=== PATIENT | female | born 2000 | race Caucasian/White ===

== ENCOUNTER 2023-01-01 12:25 | Inpatient (IN) | payer MEDICAID, SELFPAY ==
[2023-01-01 12:27] VITALS: BP 102/72; PULSE 64; RESP 20; TEMP 35.9; O2SAT 91; BMI 22.6
--- NOTE | 2023-01-01 12:27 | ED.C_ITS ---
HPI - Psych General: Chief Complaint: Psychiatric Symptoms Stated Complaint: PSYCH EVAL Time Seen by Provider: 01/01/23 12:27 History of Present Illness: Ms Espinoza is a 22-year-old lady with history of psychiatric disorder presenting to the emergency department for psychiatric evaluation. She reports over the past few days having more difficulty as she stopped taking her medical marijuana and has been more anxious and more depressed. Starting last night her anxiety has become unmanageable and progressively worsening. She was seen by crisis stabilization and given Vistaril without significant improvement. She reports the anxiety is so bad that she feels suicidal. Intensity symptoms is severe. No other specific changes in health, exacerbating, or alleviating factors identified. Onset (ago): day(s) Duration: getting worse History of same: Yes Relieving factors: none Exacerbating factors: none Context: other Associated psychiatric symptoms: depression, suicidal ideation and racing thoughts Review of Systems General: Reports: 10 or more systems reviewed and unremarkable except in HPI and below PFSH ED PFSH: Medical History (Updated 01/06/23 @ 00:01 by RUTH ANN Shankar) MDD (major depressive disorder) Psychiatric care PTSD (post-traumatic stress disorder) Physical Exam Const: COMMON NORMALS: alert GENERAL APPEARANCE: cooperative and well developed HENMT: COMMON NORMALS: normocephalic and atraumatic HEAD & SCALP: normocephalic and atraumatic Eye: COMMON NORMALS: conjunctivae normal CONJUNCTIVA: Yes conjunctivae normal SCLERA: sclerae normal Neck/C-Spine: COMMON NORMALS: supple GENERAL: Yes trachea midline Resp: COMMON NORMALS: clear to auscultation bilaterally EFFORT & INSPECTION: Yes able to speak in complete sentences AUSCULTATION: clear to auscultation bilaterally Cardio: COMMON NORMALS: regular rate and regular rhythm RATE: regular rate RHYTHM: regular rhythm GI: COMMON NORMALS: Soft to palpation PALPATION: Yes Soft to palpation and No Tenderness to palpation present (GI) PERCUSSION: normal to percussion Extremity: GENERAL: Yes normal exam except as noted and No edema Neuro: COMMON NORMALS: moves all extremities SENSORIUM/ORIENTATION: Yes alert and No Orientation impaired Psych: ACTIVITY/MOTOR BEHAVIOR: Yes restless MOOD & AFFECT: Yes anxious Course Vital Signs: Vital signs: Vital Signs Temperature 97.9 F 01/05/23 12:51 Pulse Rate 78 01/05/23 12:51 Respiratory Rate 17 01/05/23 12:51 Blood Pressure 94/64 01/05/23 12:51 Pulse Oximetry 96 01/05/23 12:51 Oxygen Delivery Me thod 01/05/23 06:00 MDM - Psych Medical Decision Making 22-year-old lady presenting for psychiatric evaluation. Exam as above. Labs with no significant hematologic or metabolic abnormality to explain symptoms. Toxic ingestions are negative. UDS positive for benzodiazepines and THC. Given clinical history and exam no indication for imaging at this time. Given severity and worsening of symptoms patient is appropriate for inpatient management. Based on ED evaluation at this point there is no obvious condition that would preclude the patient from inpatient management psychiatric concerns/symptoms. The results of ED evaluation were discussed with the patient including plan for admission due to requirement for level of care not available if discharged to prevent significant worsening/deterioration. Patient agreeable with plan. Discussed with psychiatry service who was agreeable to admit patient. Medical Records I reviewed the patient's medical records. Lab Data I reviewed the patient's lab results. 01/01/23 13:15 01/01/23 13:15 Laboratory Results WBC 4.9 10^3/uL (4.0-10.0) 01/01/23 13:15 RBC 4.42 10^6/uL (4.1-5.3) 01/01/23 13:15 Hgb 13.4 g/dL (11.5-15.3) 01/01/23 13:15 Hct 41.1 % (37.0-47.0) 01/01/23 13:15 MCV 93.0 fl (81-99) 01/01/23 13:15 MCH 30.3 pg (28.0-34.0) 01/01/23 13:15 MCHC 32.6 g/dL (30.0-36.0) 01/01/23 13:15 RDW 12.2 % (12.1-15.1) 01/01/23 13:15 Plt Count 209 10^3/cmm (130-400) 01/01/23 13:15 MPV 11.1 fL (7.4-10.4) H 01/01/23 13:15 Neut % (Auto) 78.4 % 01/01/23 13:15 Lymph % (Auto) 15.7 % 01/01/23 13:15 Millard % (Auto) 4.9 % 01/01/23 13:15 Eos % (Auto) 0.2 % 01/01/23 13:15 Baso % (Auto) 0.6 % 01/01/23 13:15 Neut # (Auto) 3.83 10^3/uL (1.8-7.7) 01/01/23 13:15 Lymph # (Auto) 0.8 10^3/uL (0.8-4.8) 01/01/23 13:15 Millard # (Auto) 0.2 10^3/uL (0.2-0.9) 01/01/23 13:15 Eos # (Auto) 0.0 10^3/uL (0.0-0.8) 01/01/23 13:15 Baso # (Auto) 0.0 10^3/uL (0.0-0.1) 01/01/23 13:15 Nucleated RBC % (auto) 0 % 01/01/23 13:15 Nucleated RBCs # 0.0 /100WBC 01/01/23 13:15 Sodium 138 mmol/L (136-145) 01/01/23 13:15 Potassium 4.2 mmol/L (3.5-5.1) 01/01/23 13:15 Chloride 99 mmol/L (98-107) 01/01/23 13:15 Carbon Dioxide 25 mmol/L (22-29) 01/01/23 13:15 Anion Gap 18.2 (5-19) 01/01/23 13:15 BUN 9 mg/dL (6-20) 01/01/23 13:15 Creatinine 0.6 mg/dL (0.5-0.9) 01/01/23 13:15 GFR Calculation 122.8 mL/min (90-130) 01/01/23 13:15 Glucose 99 mg/dL (65-115) 01/01/23 13:15 Calculated Osmolality 285 mOsm/kg (285-295) 01/01/23 13:15 Calcium 9.8 mg/dL (8.5-10.5) 01/01/23 13:15 Total Bilirubin 0.8 mg/dL (0.15-1.2) 01/01/23 13:15 AST 25 U/L (0-32) 01/01/23 13:15 ALT 11 U/L (0-33) 01/01/23 13:15 Alkaline Phosphatase 57 U/L (35-105) 01/01/23 13:15 Total Protein 7.4 g/dL (6.6-8.7) 01/01/23 13:15 Albumin 5.0 g/dL (3.5-5.2) 01/01/23 13:15 Globulin 2.4 g/dL (1.3-4.6) 01/01/23 13:15 TSH 0.77 uIU/mL (0.27-4.20) 01/01/23 13:15 HCG, Qual Negative (Negative) 01/01/23 13:37 Salicylates < 0.3 mg/dL (3-10) L 01/01/23 13:15 Urine Opiates Screen Negative ng/mL (Negative) 01/01/23 13:37 Acetaminophen < 5.0 ug/mL (10-30) L 01/01/23 13:15 Ur Barbiturates Screen Negative ng/mL (Negative) 01/01/23 13:37 Ur Phencyclidine Scrn Negative ng/mL (Negative) 01/01/23 13:37 Ur Amphetamines Screen Negative ng/mL (Negative) 01/01/23 13:37 U Benzodiazepines Scrn Positive ng/mL (Negative) H 01/01/23 13:37 Urine Cocaine Screen Negative ng/mL (Negative) 01/01/23 13:37 U Marijuana (THC) Screen Positive ng/mL (Negative) H 01/01/23 13:37 Ethyl Alcohol < 10 mg/dL (0-10) 01/01/23 13:15 Discharge Plan Discharge Patient Disposition: Admitted As Inpatient Admit Provider: Eddy Street Clinical Impression: PTSD (post-traumatic stress disorder), Suicidal ideation, Acute anxiety Condition: Stable Discharge Diet: Regular Discharge Activity: Resume usual activity Coding Level of Care Code ED [employer] for Yaakov Mccrary
--- NOTE | 2023-01-01 13:02 | PC.PHAR ---
pt states she doesnt take rx or otc meds-pt states she was at the [facility] today and they gave her a one time dose of vistaril 50mg
[2023-01-01 13:20] LABS: Basophils % 0.6 %; Eosinophils % 0.2 %; Hematocrit 41.1 % (37.0-47.0); Hemoglobin 13.4 g/dL (11.5-15.3); Lymphocytes # 0.8 10^3/uL (0.8-4.8); Lymphocytes % 15.7 %; Mean Corpuscular HGB Conc 32.6 g/dL (30.0-36.0); Mean Corpuscular Hemoglobin 30.3 pg (28.0-34.0); Mean Platelet Volume 11.1 fL (7.4-10.4); Monocytes # 0.2 10^3/uL (0.2-0.9); Monocytes % 4.9 %; Neutrophils # 3.83 10^3/uL (1.8-7.7); Neutrophils % 78.4 %; Nucleated Red Blood Cells % 0 %; Platelet Count 209 10^3/cmm (130-400); Red Blood Count 4.42 10^6/uL (4.1-5.3); Red Cell Distribution Width 12.2 % (12.1-15.1); White Blood Count 4.9 10^3/uL (4.0-10.0)
[2023-01-01] MEDS: LORazepam 1 mg Tablet PO (13:35)
[2023-01-01 13:48] LABS: HCG Qualitative Urine. Negative (Negative)
[2023-01-01 13:57] LABS: Alanine Aminotransferase 11 U/L (0-33); Alkaline Phosphatase 57 U/L (35-105); Anion Gap 18.2 (5-19); Aspartate Amino Transferase 25 U/L (0-32); Blood Urea Nitrogen 9 mg/dL (6-20); Calcium 9.8 mg/dL (8.5-10.5); Carbon Dioxide 25 mmol/L (22-29); Chloride 99 mmol/L (98-107); Globulin 2.4 g/dL (1.3-4.6); Glomerular Filtration Rate 122.8 mL/min (90-130); Glucose 99 mg/dL (65-115); Osmolality Calculated 285 mOsm/kg (285-295); Potassium 4.2 mmol/L (3.5-5.1); Sodium 138 mmol/L (136-145); Thyroid Stimulating Hormone 0.77 uIU/mL (0.27-4.20); Total Bilirubin 0.8 mg/dL (0.15-1.2); Total Protein 7.4 g/dL (6.6-8.7)
[2023-01-01 14:00] LABS: Acetaminophen < 5.0 ug/mL (10-30); Alcohol Level < 10 mg/dL (0-10); Salicylate < 0.3 mg/dL (3-10)
[2023-01-01 14:56] VITALS: BP 102/72; PULSE 64; RESP 20; TEMP 35.9; O2SAT 91
[2023-01-01 15:33] VITALS: BP 108/66; PULSE 86; RESP 16; TEMP 36.9; O2SAT 98
[2023-01-01 19:05] LABS: Amphetamines Screen Urine Negative (Negative); Barbiturates Screen Urine Negative (Negative); Benzodiazepines Screen Urine Positive (Negative); Cocaine Screen Urine Negative (Negative); Opiate Screen Urine Negative (Negative); PCP Screen Urine Negative (Negative); THC Screen Urine Positive (Negative)
[2023-01-01 21:44] VITALS: BP 95/60; PULSE 61; RESP 16; TEMP 36.9; O2SAT 97
[2023-01-01] MEDS: trazodone 50 mg Tablet PO (22:41)
[2023-01-02 06:00] VITALS: BP 96/59; PULSE 78; RESP 16; TEMP 36.8; O2SAT 98
[2023-01-02] MEDS: hyDROXYzine 25 mg Capsule 50 MG PO ×4 (08:13→21:11)
--- NOTE | 2023-01-02 08:17 | PC.NURSE ---
Addendum entered by Anna Marie Olivas LPN 01/02/23 09:47: PRN MED EFFECTIVE PT VOICED RELIEF Original Note: PRN VISTARIL 50 MG GIVEN PO PER PT C/O STATED ANXIETY, SAYS SHE HAS PTSD
--- NOTE | 2023-01-02 13:02 | PC.NURSE ---
PRN VISTARIL 50 MG GIVEN PO PER PT C/O STATED ANXIETY
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
[2023-01-02 14:00] VITALS: BP 96/55; PULSE 98; RESP 17; TEMP 37.3; O2SAT 97
--- NOTE | 2023-01-02 17:50 | PC.NURSE ---
PRN VISTARIL 50 MG GIVEN PO PER PT C/O FURTHER ANXIETY
[2023-01-02 20:12] VITALS: BP 108/71; PULSE 106; RESP 18; TEMP 36.7; O2SAT 98
[2023-01-02] MEDS: trazodone 50 mg Tablet PO (23:20)
[2023-01-03 06:00] VITALS: BP 93/57; PULSE 60; RESP 14; TEMP 36.6; O2SAT 98
[2023-01-03] MEDS: fluoxetine 10 mg Capsule PO (08:09)
--- NOTE | 2023-01-03 08:59 | PC.NURSE ---
reported to nurse she had a bowel movement this morning prior to taking her shower
[2023-01-03 14:00] VITALS: BP 97/57; PULSE 100; RESP 18; TEMP 36.6; O2SAT 96
--- NOTE | 2023-01-03 15:24 | P.NPUPN_ITS ---
Subjective NPU Subjective: Patient is a 22-year-old white female with PTSD and depression admitted with suicidal ideation and worsening depression with recent exacerbation of PTSD symptoms as she had been triggered by seasonal reminders. She reported continued depressed mood but stated that she was already feeling better here. She had felt more optimistic about her treatment. She was given further options of what to consider to treat depression including medications and this included the use of Spravato and also other modalities of treatment including transcranial magnetic stimulation. Patient appeared to tolerate the Prozac without any worsening anxiety. She reported decreased energy. She had reported significant appetite loss and some increased weight loss. She had not endorsed any body image distortion. She had expressed having diminished appetite for several months. She had reported that in times of being more stressed she had a tendency to not eat as well. She had been compliant and had attended groups and had requested further information regarding depression. Mental Status Exam MSE Comments: She is a thin white female who appeared her stated age. She was pleasant and cooperative on interview. There was evidence of mild psychomotor retardation. Her gait was within normal limits. Her hygiene was fair. There was no evidence of any abnormal involuntary motor movements tics or tremors a ppreciated. Her speech was normal in regards to rate rhythm and prosody. Her mood was described as depressed. Her affect was mood congruent and restricted in range. Her attention span appeared fair. Her insight was limited her judgment was fair. Her impulse control appeared to be improving. There was no evidence of any delusional thinking. She did not appear to be responding internal stimuli. Her recent and remote memory appeared adequate. Vitals/I&O/Wt Last Vital Signs Temp 98 F 01/03/23 14:00 Pulse 100 01/03/23 14:00 Resp 18 01/03/23 14:00 BP 97/57 01/03/23 14:00 Pulse Ox 96 01/03/23 14:00 O2 Del Method 01/03/23 14:00 Data NPU 01/01/23 13:15 01/01/23 13:15 A&P Assessment and plan (1) MDD (major depressive disorder): (2) PTSD (post-traumatic stress disorder): (3) Suicidal ideation: (4) Acute anxiety: Plan This 22-year-old white female admitted voluntarily with a history of major depressive disorder and PTSD currently receiving psychotherapy with continued stressors described at home currently endorsing suicidal ideation and fear of being alone. 1.? Increase Prozac to 20mg in am, information provided regarding treatment for depression and PTSD including different forms of therapy. 2.? TO- 15 minute checks for safety. 3.? Engage patient in individual, group and milieu therapy. 4.? Encourage sobriety treatment after discharge to the hospital care to which she is willing to commit.? Involuntary Hold Information 96 Hour Hold: 96 Hour Involuntary Admission: No Attestations NPU Medical Necessity Statement*: Inpatient hospitalization is medically necessary and is the clinically appropriate decision at this time with likely length of stay of 3 to 5 days while adjusting medications. Coding Level of Care Code Acute Code for [facility] Fwd Diagnoses MDD (major depressive disorder) F32.9 PTSD (post-traumatic stress disorder) F43.10 Suicidal ideation R45.851 Acute anxiety F41.9
[2023-01-03] MEDS: trazodone 50 mg Tablet PO (20:30)
--- NOTE | 2023-01-03 20:35 | PC.NURSE ---
PRN TRAZODONE GIVEN PER PT REQUEST FOR SLEEP.
[2023-01-03 21:08] VITALS: BP 110/76; PULSE 85; RESP 18; TEMP 36.7; O2SAT 97
[2023-01-04 06:00] VITALS: BP 105/62; PULSE 58; RESP 17; TEMP 36.6; O2SAT 97
[2023-01-04] MEDS: hyDROXYzine 25 mg Capsule 50 MG PO (07:41)
[2023-01-04] MEDS: fluoxetine 10 mg Capsule PO (08:22)
[2023-01-04 14:00] VITALS: BP 108/69; PULSE 74; RESP 16; TEMP 36.9; O2SAT 96
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
[2023-01-04] MEDS: trazodone 50 mg Tablet PO (19:58)
[2023-01-04 22:00] VITALS: BP 118/76; PULSE 81; RESP 17; TEMP 36.7; O2SAT 96
[2023-01-05] MEDS: trazodone 50 mg Tablet PO (00:05)
[2023-01-05] MEDS: hyDROXYzine 25 mg Capsule 50 MG PO (01:23)
[2023-01-05 06:00] VITALS: BP 94/64; PULSE 78; RESP 17; TEMP 36.6; O2SAT 96
[2023-01-05] MEDS: fluoxetine 10 mg Capsule PO (08:23)
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
[2023-01-05 12:51] VITALS: BP 94/64; PULSE 78; RESP 17; TEMP 36.6; O2SAT 96
--- NOTE | 2023-01-05 13:38 | PC.NURSE ---
Discharge information reviewed with patient including appointments and medications at 1312. Pt verbalized her understanding. Pt stated she felt ready to leave; denied SI/HI/AVH. Left ambulatory, with belongings, accompanied by . Pt denied complaints.
== END 2023-01-05 13:38 | disposition home or self-care (01) | DRG 881 ==
LOC: ER 14:09 → NP 01-02 06:40
PROVIDERS: Admitting Provider Psychiatry & Neurology Psychiatry; Emergency Provider Emergency Medicine; PCP Family Medicine; Visit Provider Psychiatry & Neurology Psychiatry
DX: F32.9 Major depressive disorder, single episode, unspecified (principal); R45.851 Suicidal ideations; F43.10 Post-traumatic stress disorder, unspecified; F41.9 Anxiety disorder, unspecified; Z63.4 Disappearance and death of family member; Z62.811 Personal history of psychological abuse in childhood
CPT/HCPCS: 80053; 80306; 80307; 81025; 84443; 85025; 97150; 97165; 99238; 99285

== ENCOUNTER → 2023-09-25 08:37 | Day surgery (SDC) | payer MEDICAID, SELFPAY ==
--- NOTE | 2023-09-25 09:31 | ANES.PREANE2 ---
Pre-Anesthetic Assessment Height/Weight: Height 1.66 m epidural Familial anesthetic complications: None Social No alcohol and No tobacco Exam alert, oriented x 3, clear to auscultation bilaterally and regular rate & rhythm Airway Dentition: chipped (front top) Anesthetic Plan ASA status: 2 Anesthesia: Regional (specify below) Risk of > 500 ml blood loss (7ml/kg in children): Yes, adequate IV access and fluids planned Medications/Allergies Home Medications Medication Instructions Recorded Confirmed Last Taken Type hydroxyzine pamoate 25 mg capsule 50 mg PO Q4H PRN Anxiety 30 days 01/05/23 07/24/23 Unknown Rx #120 caps cetirizine 10 mg capsule (All Day 10 mg PO DAILY PRN 04/24/23 07/24/23 Unknown History Allergy (cetirizine)) docosahexaenoic acid 200 mg mg PO DAILY 04/24/23 07/24/23 Unknown History capsule ( DHA) doxylamine succinate 25 mg tablet 12.5 mg PO .Q8Hrs PRN 04/24/23 07/24/23 Unknown History (Unisom (doxylamine)) pyridoxine (vitamin B6) 500 mg 1,000 mg PO DAILY 04/24/23 07/24/23 Unknown History tablet ferrous fumarate 325 mg (106 mg 325 mg PO DAILY 07/24/23 07/24/23 Unknown History iron) tablet fluoxetine 40 mg capsule 40 mg PO DAILY #90 caps 07/24/23 07/24/23 Unknown Rx Allergies Allergy/AdvReac Type Severity Reaction Status Date / Time morphine Allergy Intermediate ADR-Itching Verified 07/24/23 14:52 [facility] Anesthesia Medical History (Updated 02/06/23 @ 10:21 by Slick Hewitt MD) MDD (major depressive disorder) Psychiatric care PTSD (post-traumatic stress disorder) Data Anesthesia Cardiac Studies: No Data to Display
== END ==
PROVIDERS: PCP Family Medicine; Visit Provider Family Medicine
DX: Z01.818 Encounter for other preprocedural examination (principal)

== ENCOUNTER 2023-10-07 08:18 | Inpatient (IN) | payer MEDICAID, SELFPAY ==
[2023-10-07] VITALS (65 sets, daily range): BP systolic 87–144; BP diastolic 47–86; PULSE 65–111; RESP 15–20; TEMP 35.9–37; O2SAT 90–100; BMI 25.4
[2023-10-07 08:42] LABS: Basophils % 0.3 %; Eosinophils % 0.4 %; Hematocrit 40.1 % (36-47); Lymphocytes # 1.5 10^3/uL (0.8-4.8); Lymphocytes % 19.2 %; Mean Corpuscular HGB Conc 33.2 g/dL (30-55); Mean Corpuscular Hemoglobin 31.7 pg (27-33); Mean Corpuscular Volume 95.7 fl (85-98); Mean Platelet Volume 11.2 fL (7.4-10.4); Monocytes # 0.7 10^3/uL (0.2-0.9); Monocytes % 8.9 %; Neutrophils % 70.7 %; Nucleated Red Blood Cells % 0 %; Platelet Count 170 10^3/cmm (157-399); Red Blood Count 4.19 10^6/uL (3.85-5.65); Red Cell Distribution Width 12.3 % (12.1-15.1); White Blood Count 7.64 10^3/uL (3.29-11.43)
[2023-10-07] MEDS: fentaNYL 50 mcg/mL INJ 2mL IVP (08:59)
[2023-10-07] MEDS: lactated ringers 1,000 ML 999 ML IV (08:59)
[2023-10-07] MEDS: ROPivacaine syringe 100 MG/50 ML SYRINGE 10 MG EPIDURAL (09:51)
[2023-10-07] MEDS: dextrose 5%-lactated ringers 1,000 ML 125 ML IV (10:09)
--- NOTE | 2023-10-07 10:14 | PM.OBGYHP ---
Providers/Chief Complaint Admitting Physician: Devon Conway MD Primary Care Provider: Preet Ceron MD Chief Complaint: POSSIBLE RUPTURE OF MEMBRANES HPI [facility]ER SULFITE PULP History of Present Illness Sara Espinoza is a 23 year old G1, P0 female that presents at 39 weeks 4 days with possible rupture of membranes. Patient reports that she had rupture membranes prior to arrival. The patient reports that she started having regular contractions.. Patient was found to be grossly ruptured upon arrival with thick meconium. She was indira every 2 to 3 minutes. Initial check was 4 cm / 80%/-1. Patient has had an unremarkable . Review of labs were unremarkable. Patient is GBS negative. Present Details : 1 Para: 0 care: good care Ultrasounds: normal mid trimester US Obstetrical complications: none Medical complications OB: none Labs Blood type OB HPI: A (+) positive Rubella: Immune RPR: Negative GBS: Negative HBsAG: Negative Review of Systems General: Reports: 10 or more systems reviewed and unremarkable except in HPI and below Medications/Allergies Home Medications Medication Instructions Recorded Confirmed Last Taken Type pyridoxine (vitamin B6) 500 mg 1,000 mg PO DAILY 04/24/23 10/07/23 10/06/23 10:00 History tablet ferrous fumarate 325 mg (106 mg 325 mg PO DAILY 07/24/23 10/07/23 10/06/23 10:00 History iron) tablet fluoxetine 40 mg capsule 40 mg PO DAILY #90 caps 07/24/23 10/07/23 10/06/23 10:00 Rx ascorbic acid (vitamin C) 500 mg 500 mg PO DAILY 10/07/23 10/07/23 10/06/23 10:00 History tablet (Vitamin C) famotidine 20 mg tablet (Pepcid) 20 mg PO DAILY 10/07/23 10/07/23 10/06/23 10:00 History loratadine 10 mg tablet 10 mg PO DAILY 10/07/23 10/07/23 10/06/23 10:00 History vits no.124-ferrous fum 1 tab PO DAILY 10/07/23 10/07/23 10/06/23 10:00 History 27 mg iron-folic acid 800 mcg tablet ( Vitamin) Allergies Allergy/AdvReac Type Severity Reaction Status Date / Time morphine Allergy Intermediate ADR-Itching Verified 07/24/23 14:52 PFSH BLEACHER SULFITE PULP PFSH: Medical History (Updated 10/07/23 @ 10:20 by Devon Conway MD) MDD (major depressive disorder) Psychiatric care PTSD (post-traumatic stress disorder) Vitals/I&O/Wt Last Vital Signs Temp 96.6 F L 10/07/23 09:06 Pulse 76 10/07/23 10:10 Resp 20 H 10/07/23 08:59 BP 117/63 10/07/23 10:10 Pulse Ox 100 10/07/23 10:01 10/06/23 10/07/23 10/07/23 22:59 06:59 14:59 Intake Total 266.65 / 266.65 Balance 266.65 / 266.65 Physical Exam Const: COMMON NORMALS: no acute distress, healthy appearing and alert Resp: COMMON NORMALS: normal respiratory effort and No use of accessory muscles Cardio: COMMON NORMALS: no JVD and regular rate GI: OTHER: Gravid Extremity: COMMON NORMALS: no clubbing, cyanosis or edema Neuro: COMMON NORMALS: moves all extremities, no focal motor deficits and no sensory deficits noted Psych: COMMON NORMALS: cooperative Skin: COMMON NORMALS: no rashes or lesions noted Data 10/07/23 08:30 Results Labs OB ([facility]): Blood Type A Positive 10/07/23 Antibody Screen Negative 10/07/23 Hct 40.1 % (36-47) 10/07/23 Hgb 13.30 g/dL (11.27-16.99) 10/07/23 Rho(D) Type Rh positive 10/07/23 Plt Count 170 10^3/cmm (157-399) 10/07/23 TSH 0.77 uIU/mL (0.27-4.20) 01/01/23 HCG, Qual Negative (Negative) 01/01/23 Urine Opiates Screen Negative ng/mL (Negative) 01/01/23 Ur Barbiturates Screen Negative ng/mL (Negative) 01/01/23 Ur Phencyclidine Scrn Negative ng/mL (Negative) 01/01/23 Ur Amphetamines Screen Negative ng/mL (Negative) 01/01/23 U Benzodiazepines Scrn Positive ng/mL (Negative) H 01/01/23 Urine Cocaine Screen Negative ng/mL (Negative) 02/19/23 U Marijuana (THC) Screen Positive ng/mL (Negative) H 01/01/23 A&P Assessment and plan (1) Term : Proceed with labor management. Patient request epidural. (2) Rupture of membranes with meconium present: Attestations Medical Necessity Statement*: Admit for rupture of membranes and active labor. Anticipate 1 midnight stay Coding Level of Care Code Acute Code for Chg Fwd Diagnoses Term Z34.90 Rupture of membranes with meconium present O77.0
--- NOTE | 2023-10-07 10:29 | PC.NURSE ---
Straight cath to empty bladder. 200mL urine drained.
[2023-10-07 11:03] LABS: Amphetamines Screen Urine Negative (Negative); Barbiturates Screen Urine Negative (Negative); Benzodiazepines Screen Urine Positive (Negative); Cocaine Screen Urine Negative (Negative); Opiate Screen Urine Negative (Negative); PCP Screen Urine Negative (Negative); THC Screen Urine Negative (Negative)
--- NOTE | 2023-10-07 11:17 | ANES.PREANE2 ---
Pre-Anesthetic Assessment Height/Weight: Height 1.68 m Weight 71.668 kg Temp Pulse Resp BP Pulse Ox O2 Del Method 97.6 F 86 16 117/59 100 Room Air 10/07/23 10:00 10/07/23 11:07 10/07/23 10:00 10/07/23 11:07 10/07/23 10:01 10/07/23 10:38 Familial anesthetic complications: none Was Beta Franki taken within 24 hours: N/A Was Clonidine taken within 24 hours: N/A Social No alcohol and No tobacco Exam alert, oriented x 3, clear to auscultation bilaterally and regular rate & rhythm Airway Submandibular: within normal limits Cervical ROM: within normal limits Mallampati: Class II Dentition: full CV/HEM Anemia Neuropsych Anxiety and Depression Anesthetic Plan ASA status: 2 Anesthesia: Regional (specify below) (Labor epidural) Medications/Allergies Home Medications Medication Instructions Recorded Confirmed Last Taken Type pyridoxine (vitamin B6) 500 mg 1,000 mg PO DAILY 04/24/23 10/07/23 10/06/23 10:00 History tablet ferrous fumarate 325 mg (106 mg 325 mg PO DAILY 07/24/23 10/07/23 10/06/23 10:00 History iron) tablet fluoxetine 40 mg capsule 40 mg PO DAILY #90 caps 07/24/23 10/07/23 10/06/23 10:00 Rx ascorbic acid (vitamin C) 500 mg 500 mg PO DAILY 10/07/23 10/07/23 10/06/23 10:00 History tablet (Vitamin C) famotidine 20 mg tablet (Pepcid) 20 mg PO DAILY 10/07/23 10/07/23 10/06/23 10:00 History loratadine 10 mg tablet 10 mg PO DAILY 10/07/23 10/07/23 10/06/23 10:00 History vits no.124-ferrous fum 1 tab PO DAILY 10/07/23 10/07/23 10/06/23 10:00 History 27 mg iron-folic acid 800 mcg tablet ( Vitamin) Allergies Allergy/AdvReac Type Severity Reaction Status Date / Time morphine Allergy Intermediate ADR-Itching Verified 07/24/23 14:52 Current Medications Generic Name Dose Route Start Last Admin Trade Name Freq PRN Reason Stop Dose Admin Fentanyl 25 - 100 mcg 10/07/23 08:46 10/07/23 08:59 Fentanyl 50 Mcg/Ml Inj 2ml IVP 25 mcg Q1H PRN Administration SEVERE PAIN Dextrose/Lactated Ringer's 1,000 mls @ 125 mls/hr 10/07/23 08:30 10/07/23 10:09 Dextrose 5%-Lactated Ringers IV 125 mls/hr .Q8H CARLITO Administration Lactated Ringer's 1,000 mls @ 999 mls/hr 10/07/23 08:31 10/07/23 10:41 Lactated Ringers IV Infused .Q1H1M PRN Infusion See label comments Ropivacaine 100 mg in 50 mls @ 10 mls/hr 10/07/23 08:45 10/07/23 09:51 Naropin Syringe EPIDURAL 10 mls/hr .Q5H CARLITO Administration PFSH Anesthesia Medical History (Updated 10/07/23 @ 10:20 by Devon Conway MD) MDD (major depressive disorder) Psychiatric care PTSD (post-traumatic stress disorder) Female Reproductive History : 1 Data Anesthesia 10/07/23 08:30 Short CBC 10/07/23 Range/Units 08:30 WBC 7.64 (3.29-11.43) 10^3/uL Hgb 13.30 (11.27-16.99) g/dL Hct 40.1 (36-47) % MCV 95.7 (85-98) fl Plt Count 170 (157-399) 10^3/cmm Neut % (Auto) 70.7 % Neut # (Auto) 5.40 (1.8-7.7) 10^3/uL Blood Bank 10/07/23 08:30 Blood Type A Positive Rho(D) Type Rh positive Antibody Screen Negative Cardiac Studies: No Data to Display Anesthesia Procedures Epidural Time Out Performed: Yes Consents Signed: Procedure Consent Consent: requested by attending/covering physician, from patient, risks and benefits reviewed and patient agrees to proceed Lumbar Level: L3-L4 Epidural position: sitting Epidural procedure: sterile prep of area, 1% lidocaine to numb the area, 18 g needle, neg for paresthesia, test dose given, 1.5% xylocaine 1:200k epi, placed PCEA, no systemic response, sterile dressing applied and 0.2% Ropiavacaine @ mls/hr (10) Additional Comments: CT at 5cm, cath at 10cm, bolused 5mls 2% lido
[2023-10-07] MEDS: oxytocin 30 UNIT/500 ML BAG 600 UNIT IV (11:35)
--- NOTE | 2023-10-07 12:13 | PM.DELIVERY ---
Delivery Note: Date of delivery: October 07, 2023 Pre-delivery diagnoses: Term , spontaneous rupture membranes with meconium Post-delivery diagnoses: Same, viable female Procedure: Spontaneous vaginal delivery Delivering Physician: Dr. Dre Conway Estimated blood loss (mL): 500 Pre-Delivery Course: This is a 23-year-old G1, P1 that presented at 39 weeks 4 days with spontaneous rupture of membranes. Patient had progressed fairly quickly to completion. Delivery: Once patient was completely dilated the patient was placed into the normal lithotomy position. Patient started pushing with contractions and slowly was able to cause descent of the fetus. Eventually mom had delivered 's head without difficulty followed by the rest of the infant's body. The was placed onto mother's abdomen. Thick meconium was noted. After short delay the cord was clamped and cut and baby was taken to awaiting nursing staff for further intervention. Delivery of the placenta occurred soon after. Review of the perineum showed a second-degree perineal tear as well as a periurethral on the left. This was repaired with 2-0 Vicryl. Bleeding was noted despite oxytocin so Cytotec was given rectally. At the end of the procedure the bleeding was much more controlled. Post-Delivery Status: Stable History History History 1 Term Miscarriages/Ectopic Living Children 1 A&P Assessment and plan (1) Term : (2) Rupture of membranes with meconium present: (3) Vaginal delivery: Coding Level of Care Code Acute Code for Chg Fwd Diagnoses Term Z34.90 Rupture of membranes with meconium present O77.0 Vaginal delivery O80
[2023-10-07] MEDS: benzocaine-menthol 78 gm Canister 1 SPRAY TOPICAL (15:22)
[2023-10-07] MEDS: ibuprofen 800 mg tablet PO ×2 (15:22→20:09)
[2023-10-07] MEDS: lanolin oint 7 gm 1 APPLIC TOPICAL (15:22)
--- NOTE | 2023-10-07 15:28 | ANE.PACU2 ---
Inpatient post-anesthesia follow up: Airway intact: Yes Vital signs: Temperature 97.6 F Pulse Rate 93 Respiratory Rate 15 Blood Pressure 92/65 Pulse Oximetry 100 Oxygen Delivery Me thod Room Air Oxygen Flow Rate Fraction of Inspir ed Oxygen Hydration adequate: Yes Nausea and vomiting: No Pain level: 2 Mental status: Baseline Additional Comments: Anes start 10.07.23 7930 Anes end 10.07.23 3560
--- NOTE | 2023-10-07 16:00 | PC.NURSE ---
Pt up to bathroom at 1520, void 200mL. Kelsey care discussed and performed by pt. Pad and gown changed. Pt then ambulated to nursery at 1530 to see baby and get update on her plan of care. Pt remained in nursery until 1555 and then ambulated to OB9 for post care. Oriented to room/call light. Discussed visiting hours, quiet time, and proud parent pack. Discussed pumping if desired.
[2023-10-07] MEDS: docusate sodium 100 mg Capsule PO (18:03)
[2023-10-08 00:26] LABS: Hematocrit 27.3 % (36-47); Mean Corpuscular Volume 97.2 fl (85-98); Mean Platelet Volume 11.4 fL (7.4-10.4); Platelet Count 147 10^3/cmm (157-399); Red Blood Count 2.81 10^6/uL (3.85-5.65); Red Cell Distribution Width 12.3 % (12.1-15.1); White Blood Count 8.07 10^3/uL (3.29-11.43)
[2023-10-08 02:23] VITALS: BP 96/58; PULSE 76; RESP 16; TEMP 36.6; TEMP 36.7; O2SAT 97
[2023-10-08 02:38] LABS: Glucose Point of Care 41 mg/dL (70-110)
[2023-10-08 05:24] LABS: Glucose Point of Care 34 mg/dL (70-110)
[2023-10-08 05:50] VITALS: BP 98/63; PULSE 85; RESP 16; TEMP 36.8; O2SAT 98
[2023-10-08 06:22] LABS: Glucose Point of Care 49 mg/dL (70-110)
--- NOTE | 2023-10-08 08:58 | P.DS_ITS ---
Discharge Providers [employer] Date of Admission: 10/07/23 08:18 Date of Discharge: 10/08/23 Attending Provider at Admission: Devon Conway MD Attending Provider at Discharge: Devon Conway MD Primary Care Provider: Preet Ceron MD Diagnoses at Discharge Discharge Diagnosis (1) Term : Status: Acute (2) Rupture of membranes with meconium present: Status: Acute (3) Vaginal delivery: Status: Acute Reason for Visit Reason for Visit: POSSIBLE RUPTURE OF MEMBRANES Hospital Course Hospital Course This is a 23 y/o female that presented at 39w4d with ROM. She progressed to completion without further intervention. she delivered a viable female without difficulty. She had 2nd degree perineal tear and left periurethral tear that were both repaired. She had significant amount of bleeding after delivery, but this improved with intervention and repair of lacerations. She has appropriate lochia since. She has been ambulating and urinating without difficulty. Pain is wel controlled. she has not had any post complications. Information Peripartum Data: Delivery Method: Vaginal Laceration description: Perineal - 2nd Degree Episiotomy description: None complications: none Physical Exam Const: COMMON NORMALS: no acute distress, healthy appearing and alert Neck/C-Spine: COMMON NORMALS: no JVD Resp: COMMON NORMALS: normal respiratory effort and No use of accessory muscles Cardio: COMMON NORMALS: no JVD and regular rate RATE: regular rate GI: OTHER: uterus firm and below umbilicus Extremity: COMMON NORMALS: no clubbing, cyanosis or edema Neuro: COMMON NORMALS: moves all extremities, no focal motor deficits and no sensory deficits noted SENSORIUM/ORIENTATION: Yes alert Psych: COMMON NORMALS: cooperative Skin: COMMON NORMALS: no rashes or lesions noted GENERAL SKIN EXAM: no rashes or lesions noted History History History 1 Term Miscarriages/Ectopic Living Children 1 Discharge Data Studies Completed and Pending Pending at discharge Category Date Time Status Miscellaneous Test Routine Lab 10/07/23 10:25 Received Retype for Patiets ABO/Rh Routine Lab 10/07/23 09:42 Received Laboratory Results WBC 8.07 10^3/uL (3.29-11.43) 10/08/23 00:15 RBC 2.81 10^6/uL (3.85-5.65) L 10/08/23 00:15 Hgb 9.00 g/dL (11.27-16.99) L D 10/08/23 00:15 Hct 27.3 % (36-47) L D 10/08/23 00:15 MCV 97.2 fl (85-98) 10/08/23 00:15 MCH 32.0 pg (27-33) 10/08/23 00:15 MCHC 33.0 g/dL (30-55) 10/08/23 00:15 RDW 12.3 % (12.1-15.1) 10/08/23 00:15 Plt Count 147 10^3/cmm (157-399) L 10/08/23 00:15 MPV 11.4 fL (7.4-10.4) H 10/08/23 00:15 Neut % (Auto) 70.7 % 10/07/23 08:30 Lymph % (Auto) 19.2 % 10/07/23 08:30 [place] % (Auto) 8.9 % 10/07/23 08:30 Eos % (Auto) 0.4 % 10/07/23 08:30 Baso % (Auto) 0.3 % 10/07/23 08:30 Neut # (Auto) 5.40 10^3/uL (1.8-7.7) 10/07/23 08:30 Lymph # (Auto) 1.5 10^3/uL (0.8-4.8) 10/07/23 08:30 [place] # (Auto) 0.7 10^3/uL (0.2-0.9) 10/07/23 08:30 Eos # (Auto) 0.0 10^3/uL (0.0-0.8) 10/07/23 08:30 Baso # (Auto) 0.0 10^3/uL (0.0-0.1) 10/07/23 08:30 Nucleated RBC % (auto) 0 % 10/07/23 08:30 Nucleated RBCs # 0.0 /100WBC 10/07/23 08:30 POC Glucose 49 mg/dL (70-110) L 10/08/23 06:08 Urine Opiates Screen Negative ng/mL (Negative) 10/07/23 10:25 Ur Barbiturates Screen Negative ng/mL (Negative) 10/07/23 10:25 Ur Phencyclidine Scrn Negative ng/mL (Negative) 10/07/23 10:25 Ur Amphetamines Screen Negative ng/mL (Negative) 10/07/23 10:25 U Benzodiazepines Scrn Positive ng/mL (Negative) H 10/07/23 10:25 Urine Cocaine Screen Negative ng/mL (Negative) 10/07/23 10:25 U Marijuana (THC) Screen Negative ng/mL (Negative) 10/07/23 10:25 Blood Type A Positive 10/07/23 08:30 Rho(D) Type Rh positive 10/07/23 08:30 Antibody Screen Negative 10/07/23 08:30 Vitals Last Vital Signs Temp 98.3 F 10/08/23 05:50 Pulse 85 10/08/23 05:50 Resp 16 10/08/23 05:50 BP 98/63 10/08/23 05:50 Pulse Ox 98 10/08/23 05:50 O2 Del Method Room Air 10/08/23 05:50 Results Labs OB ([facility]): Blood Type A Positive 10/07/23 Antibody Screen Negative 10/07/23 Hct 27.3 % (36-47) L 10/08/23 Hgb 9.00 g/dL (11.27-16.99) L 10/08/23 Rho(D) Type Rh positive 10/07/23 Plt Count 147 10^3/cmm (157-399) L 10/08/23 TSH 0.77 uIU/mL (0.27-4.20) 01/01/23 HCG, Qual Negative (Negative) 01/01/23 Urine Opiates Screen Negative ng/mL (Negative) 10/07/23 Ur Barbiturates Screen Negative ng/mL (Negative) 10/07/23 Ur Phencyclidine Scrn Negative ng/mL (Negative) 10/07/23 Ur Amphetamines Screen Negative ng/mL (Negative) 10/07/23 U Benzodiazepines Scrn Positive ng/mL (Negative) H 10/07/23 Urine Cocaine Screen Negative ng/mL (Negative) 10/07/23 U Marijuana (THC) Screen Negative ng/mL (Negative) 10/07/23 Discharge Plan Discharge Patient Disposition: Home Condition: Stable Prescriptions: Continued pyridoxine (vitamin B6) 500 mg tablet 1,000 mg PO DAILY ferrous fumarate 325 mg (106 mg iron) tablet 325 mg PO DAILY fluoxetine 40 mg capsule 40 mg PO DAILY Qty: 90 0RF Pepcid 20 mg Tablet 20 mg PO DAILY Vitamin C 500 mg Tablet 500 mg PO DAILY loratadine 10 mg Tablet 10 mg PO DAILY Vitamin 27 mg iron- 800 mcg Tablet 1 tab PO DAILY Discharge Orders: Discharge Order (Routine); Ordered 10/08/23 Ordered By: Devon Conway Referrals: Preet Ceron MD [Primary Care Provider] - 6 Weeks Discharge Diet: Usual diet Discharge Activity: Limit activity as instructed Patient Instructions: Opioid Safety Discharge Attestations [employer] Time Spent in Discharge Care*: less than 30 min Coding Level of Care Code Acute Code for Chg Fwd Diagnoses Term Z34.90 Rupture of membranes with meconium present O77.0 Vaginal delivery O80
[2023-10-08] MEDS: docusate sodium 100 mg Capsule PO (09:39)
[2023-10-08] MEDS: ibuprofen 800 mg tablet PO (09:39)
[2023-10-08] MEDS: prenatal vitamin Capsule 1 CAP PO (09:39)
[2023-10-08 09:40] VITALS: BP 110/74; PULSE 81; RESP 15; TEMP 36.6; TEMP 36.7; O2SAT 99
[2023-10-08 13:24] VITALS: BP 100/61; PULSE 81; RESP 16; TEMP 36.7; O2SAT 97
[2023-10-13 12:55] LABS: Alprazolam, Urine Level negative; Flurazepam Metabolite negative; Lorazepam, Urine Level negative; Nordiazepam, Urine Level negative; Oxazepam, Urine Level negative; Temazepam, Urine Level negative
== END 2023-10-08 13:26 | disposition home or self-care (01) | DRG 807 ==
LOC: OPOB 08:23 → OBGYN 08:23
PROVIDERS: Absent Provider Family Medicine; Admitting Provider Family Medicine; PCP Family Medicine; Visit Provider Family Medicine
DX: O42.92 Full-term premature rupture of membranes, unspecified as to length of time between rupture and onset of labor (principal); Z37.0 Single live birth; Z3A.39 39 weeks gestation of pregnancy; O77.0 Labor and delivery complicated by meconium in amniotic fluid; O99.344 Other mental disorders complicating childbirth; F32.9 Major depressive disorder, single episode, unspecified; F43.10 Post-traumatic stress disorder, unspecified; O70.1 Second degree perineal laceration during delivery; O71.82 Other specified trauma to perineum and vulva
CPT/HCPCS: 36415; 36416; 51702; 59025; 59409; 80306; 80326; 82962; 85025; 85027; 86850; 86900; 96374; 99211; J2590; J2795; J3010; J7120; J7121